=== PATIENT | female | born 1980 | race African-American/Black ===

== ENCOUNTER 2019-06-29 10:48 | Emergency (ER) | payer OTHER ==
[~2019-06-29] VITALS: Ht 170.2 cm; Wt 95.3 kg
[2019-06-29 11:03] LABS: URINE BILIRUBIN NEGATIVE (Negative); URINE BLOOD TRACE (Negative); URINE CLARITY CLEAR; URINE COLOR YELLOW; URINE GLUCOSE-RANDOM* NEGATIVE (Negative); URINE KETONES NEGATIVE (Negative); URINE NITRITE-REFLEX NEGATIVE (Negative); URINE PROTEIN (DIPSTICK) NEGATIVE (Negative); URINE SPECIFIC GRAVITY <= 1.005 (1.005-1.035); URINE UROBILINOGEN 0.2 E.U./dl (0.2-1.0)
[2019-06-29 11:04] LABS: URINE LEUKOCYTES-REFLEX 3+ (Negative)
[2019-06-29 11:10] VITALS: BP 125/88
[2019-06-29 11:11] LABS: SQUAMOUS 0-3 Few /LPF (0-3)
[2019-06-29 11:12] LABS: BACTERIA-REFLEX 1-9 Few /HPF (None Seen); CASTS None Seen /LPF (None Seen); CRYSTALS None Seen /LPF (None Seen); URINE RBC 0-2 Rare /HPF (0-2)
[2019-06-29] MEDS ORDERED: MACROBID 100 M100 M1 PO (11:20)
[2019-06-29] MEDS ORDERED: PHENAZOPYRIDIN200 M2 PO (11:20)
== END 2019-06-29 11:29 | disposition home or self-care (01) ==
LOC: ER 10:48
PROVIDERS: Physician Assistant
DX: N39.0 Urinary tract infection, site not specified (principal); F17.210 Nicotine dependence, cigarettes, uncomplicated

== ENCOUNTER 2021-01-31 10:56 | Emergency (ER) | payer OTHER ==
[~2021-01-31] VITALS: Ht 170.2 cm; Wt 99.8 kg
[~2021-01-31 10:56] MED LIST: MACROBID 100 M100 M1 PO; PHENAZOPYRIDIN200 M2 PO
[2021-01-31 13:24] LABS: ABSOLUTE NEUTROPHILS 4.7 thou/uL (1.4-8.2); BASOPHILS 0.5 % (0.0-2.0); EOSINOPHILS 1.2 % (0.0-3.0); HEMATOCRIT 39.8 % (37.0-47.0); HEMOGLOBIN 13.6 gm/dL (12.0-15.0); LYMPHOCYTES 33.1 % (24.0-44.0); MCH 33.9 pg (26.0-34.0); MCHC 34.2 g/dL (28.0-37.0); MONOCYTES 5.7 % (1.0-8.0); PLATELET COUNT 344 thou/uL (150-400); POLYS 59.5 % (36.0-66.0); RBC 4.02 mil/uL (4.20-5.00); RDW 13.5 % (10.5-14.5); WBC 7.9 thou/uL (4.0-11.0)
[2021-01-31 13:26] LABS: CALCIUM 9.5 mg/dL (8.5-10.1); CREATININE 0.9 mg/dL (0.6-1.0); POTASSIUM 3.7 mmol/L (3.5-5.1)
[2021-01-31 13:38] LABS: TOTAL BILIRUBIN 0.3 mg/dL (0.2-1.0); TOTAL PROTEIN 8.1 g/dL (6.4-8.2)
[2021-01-31 14:13] VITALS: BP 146/100
--- NOTE | 2021-02-01 09:30 | EKG ---
[place] [address] MD [facility] [place] [address] ELECTROCARDIOGRAM REPORT Name: TAMELA WALKER RACHEL [facility] [id number] Admission: 01/31/21 Attend Phys: Discharge: 01/31/21 Date of : 80 Report #: [id number] [facility] ED Test Date: 2021-01-31 Test Time: 14:02:23 Pat Name: TAMELA WALKER Department: Room: Gender: F Family Psychologist: ARLENECHRISSIEDEWAYNE : 1980 Requested By: Delonte Verdugo Order Number: [id number] MD: Emmett Lopez Measurements Intervals [place] Rate: 79 P: 27 HI: 169 QRS: -18 QRSD: 86 T: -8 QT: 381 QTc: 437 Interpretive Statements Sinus rhythm No significant abnormality Compared to ECG 02/09/2006 15:34:07 Sinus arrhythmia no longer present Electronically Signed On 02-01-2021 9:30:19 CDT by Emmett Lopez [email or web address] <ELECTRONICALLY SIGNED> By: Emmett Lopez MD, [facility] 02/01/21 0930 1402 1402 Emmett Lopez MD, FACC /EPI
== END 2021-01-31 14:14 | disposition home or self-care (01) ==
LOC: ER 10:56
PROVIDERS: Emergency Medicine
DX: I10 Essential (primary) hypertension (principal); F17.210 Nicotine dependence, cigarettes, uncomplicated